=== PATIENT | female | born 1965 | race Caucasian/White ===

== ENCOUNTER 2016-11-06 03:53 | Inpatient (IN) | payer OTHER ==
--- NOTE | 2016-10-28 16:51 | History & Physical Pre-Op ---
General Information and [facility] MD Statement: I have seen and personally examined MARYJO GARCIA and documented this H&P. The patient is a 51 year old F who presented with a patient stated chief complaint of neck pain radiating predominantly to her right arm and hand with numbness and weakness. Source of Information: patient, old records Exam Limitations: no limitations History of Present Illness: Maryjo is a 51-year-old female who does have a 7 month history of progressively worsening neck pain radiating to her right tricep, wrist, and into her right hand with associated numbness in her right thumb and second and third digit intermittently. She also experiences occasional pain in her left trapezius muscle and rhomboid muscle. She does admit to weakness in her right upper extremity with associated dizziness and feeling "discombobulated". Maryjo states that her pain is a 10/10 in intensity in the morning upon awakening and in the evening after work. She denies any bowel or bladder changes. She has experienced some right-sided clavicle pain. She denies any known injury or precipitating event. She has tried narcotic analgesics, nonsteroidal anti- inflammatory medications, activity modification, ice, heat, and rest which has given her very minimal and temporary symptom relief. Maryjo's MRI confirms disc herniations at C4-5, C5-6, and right C6-7 with associated cord compression. Due to the fact that Maryjo has failed to respond to conservative measures and has had progressively worsening weakness in her right arm and hand, she wants nothing more to do with nonsurgical treatment and has been consented for an anterior/posterior cervical decompression and fusion C4-C7 with instrumentation and iliac crest bone grafting on 11/08/2016. Allergies/Medications Allergies: Coded Allergies: No Known Allergies (10/28/16) Home Med list Amlodipine Besylate (Norvasc) 5 MG TABLET 1 TAB PO DAILY BP (Reported) Modafinil (Provigil) 100 MG TABLET 1 TAB PO QAM "PERK UP" (Reported) Venlafaxine HCl (Effexor XR) 150 MG CAP.ER.24H 1 CAP PO DAILY BP (Reported) Compliance With Home Meds: GOOD Past History Medical History Neurological: dizziness EENT: NONE Cardiovascular: hypertension Respiratory: smoker 1PPD x 9 years Gastrointestinal: NONE Hepatic: NONE Renal: NONE Musculoskeletal: disk herniation, degen joint disease, osteoarthritis, spinal stenosis Psychiatric: depression, OCD Endocrine: NONE Blood Disorders: NONE Cancer(s): NONE WARNING COORDINATION METEOROLOGIST/Reproductive: NONE Surgical History Pertinent Surgical History: appendectomy, s/p T & A, s/p Abdominoplasty 15 years ago Past Family/Social History Family History Relations & Conditions if any FATHER (ASCVD). , Age 70. MOTHER (ASCVD). Age 80. Grandmother (Diabetes Mellitus). . DAUGHTER, , Age 24; Cause: Non Hodgkin's lymphoma. Psychosocial History Where Do You Live? Home Who Do You Live With? spouse Primary Language: Wolof Smoking Status: Current Everyday Smoker (1PPD x 9 years) ETOH Use: denies use Employment History Employment: Employed Profession/Employer: Community Nurse/Director of Daycare Review of Systems Review of Systems: Remarkable for the above complaints. Medication List Current Psychiatric Med(s): Norvasc 5mg daily Effexor 150mg daily Provigil 100mg daily Dihydrocodeine prn pain Aleve prn pain Stopped Atasol prn pain Exam & Diagnostic Data Physical Exam: Height: 5'5" Weight: 181 lbs. Physical Exam General Appearance Alert, Oriented X3, Cooperative, Mild Distress Skin No Rashes, No Breakdown, No Significant Lesion HEENT Atraumatic, PERRLA, EOMI, Mucous Membr. moist/pink Neck Supple, No JVD, No thryomegaly, +2 Carotid Pulse wo Bruit Lymphatic Cervical nl Cardiovascular Regular Rate, Normal S1, Normal S2, No Murmurs Lungs Clear to Auscultation Abdomen Normal Bowel Sounds, Soft, No Tenderness, No Hepatospenomegaly, No Masses Neurological Normal Gait, Normal Speech, Strength at 5/5 X4 Ext, Normal Tone, Reflexes 2+, decreased sensation in right 1st, 2nd and third digit Extremities No Clubbing, No Cyanosis, No Edema, Normal Pulses Vascular Normal Pulses Last 24 Hrs of Labs/Heriberto: Laboratory Tests 11/05/16 1425: Sodium Cancelled, Potassium Cancelled, Chloride Cancelled, Carbon Dioxide Cancelled, Anion Gap Cancelled, BUN Cancelled, Creatinine Cancelled, BUN/ Creatinine Ratio Cancelled, Glucose Cancelled, Calcium Cancelled, Total Bilirubin Cancelled, AST Cancelled, ALT Cancelled, Alkaline Phosphatase Cancelled, Total Protein Cancelled, Albumin Cancelled, Globulin Cancelled, Albumin/Globulin Ratio Cancelled, PT Cancelled, INR Cancelled, APTT Cancelled, CBC w Diff Cancelled, WBC Cancelled, RBC Cancelled, Hgb Cancelled, Hct Cancelled , MCV Cancelled, MCH Cancelled, RDW Cancelled, Plt Count Cancelled, MPV Cancelled, PUBS MCHC Cancelled, Urine Color Cancelled, Urine Clarity Cancelled, Urine pH Cancelled, Ur Specific [place] Cancelled, Urine Protein Cancelled, Urine Ketones Cancelled, Urine Nitrite Cancelled, Urine Bilirubin Cancelled, Urine Urobilinogen Cancelled, Ur Leukocyte Esterase Cancelled, Ur Microscopic Cancelled, Urine Hemoglobin Cancelled, Urine Glucose Cancelled Assessment/Plan Assessment/Plan: Assessment: 1. Severe spinal stenosis at C4-5, C5-6, and C6-7 with cord compression. 2. Smoking history 3. Hypertension 4. Depression 5. OCD Plan: Maryjo is scheduled for a staged anterior/posterior cervical decompression and fusion C4-C7 with instrumentation and iliac crest bone grafting on 11/08/2016. We discussed the surgery in great detail. We also discussed the pre-and postoperative course, follow-up care and instructions, and anticipated recovery. We also discussed the risks of surgery not to exclude , paralysis, infection, bleeding, continued pain, failure of the surgery, need for future surgery, DVT, vascular injury, CSF leak, hoarseness, and dysphagia, and given these risks, she still wishes to proceed. We discussed smoking cessation prior to and after surgery and the importance of that in her healing. She is scheduled to follow up with her primary care physician following blood work, urinalysis, EKG, and chest x-ray for medical clearance. Any changes in this patient's plan is based on this patient's outpatient clinical presentation. As Ranked By This Provider Problem List: 1. Hypertension 2. OCD (obsessive compulsive disorder) 3. Depression 4. Smoker Attending MD Review Statement Attending Statement Attending MD Statement: examined this patient, discuss w/resident/PA/DATA CENTER ENGINEER, agreed w/resident/PA/DATA CENTER ENGINEER, reviewed images
[~2016-11-06] VITALS: Ht 165.1 cm; Wt 81.6 kg
[~2016-11-06 03:53] MED LIST: EFFEXOR XR150 M1 PO; NORVASC5 M1 PO; PROVIGIL100 M1 PO
--- NOTE | 2016-11-06 17:00 | Operative Report ---
Operative/Inv Procedure Report Surgery Date: 11/06/16 Name of Procedure: Anterior cervical discectomy fusion with interdiscal cage and autograft anterior plate C4 5 C5 6 C6 7 harvesting morselized bone graft right anterior iliac crest Reconstruction of bone graft site with implant use of fluoroscopy Pre-Operative Diagnosis: Degenerative disc disease and spinal stenosis C4 to C7 osteoporosis Post-Operative Diagnosis: Same Estimated Blood Loss: 50ml to 100ml Surgeon/Gasoline Locomotive Crane Operator: RUTHIE BILLINGS,STACIA Oscar M.D. Anesthesia: general endotracheal tube Monitors: Neuro monitor IV Fluids: After adequate general anesthesia was achieved the patient was placed in the supine position with the head turned left and the shoulder states the side. The right side of the neck and left anterior iliac crest was sterile prepped and draped. Longitudinal incision was created medial to the neurovascular bundle lateral to the visceral structure blunt dissection was carried through this medial plane to the midline were bent needle was placed within the disc space. Fluoroscopy was used to identify surgical level. Sharp enterotomies were created at the 3 disc starting with C4 5 and C5 6 followed by C6 7 curettes and rongeurs were used to create the decompression which is carried posteriorly through the annulus and posterior longitudinal ligament. There was severe stenosis and encroachment of bone and disc 5 and C5 6 there was a right-sided herniation consistent with the patient's preoperative symptoms C6 7. Following the decompression the endplates were debrided with the high-speed bur. An incision was made of the left anterior iliac crest. Subperiosteal dissection was carried medial and lateral to the crest. The oscillating saw and curettes were used to collect cortical cancellus cancellus morcellized bone. Wound was irrigated packed with bone graft implant and closed in layers with absorbable suture with sharmila in the skin. The trials were used to measure the disc spaces and implants were selected and packed with bone graft. The 3 interdiscal cages were tamped into position under fluoroscopy at C4 5 C5 6 and C6 7. An anterior plate was then applied with reasonable purchase in all 8 screws. 2 process was identified at time of harvesting the bone graft. The construct was checked in AP and lateral plane and found to be appropriate. Hemostasis been achieved. Wound was copiously irrigated. Closure of the platysma was performed with a running 0 absorbable suture. Skin was closed with nylon. Sterile dressings were applied the patient was turned for posterior surgery. Drains: C known fluids. Operative/Procedure Note Note: C note.
--- NOTE | 2016-11-06 17:06 | Operative Report ---
Operative/Inv Procedure Report Surgery Date: 11/06/16 Name of Procedure: Posterior decompression with laminectomies and keyhole foraminotomies C4 5 C5 6 C6 7. Placement of Marks tongs removal of Marks tongs. Lateral fusion C4 to C7 bilaterally. Instrumented fusion C4 to C7 with 18-gauge wire. Fluoroscopy. Pre-Operative Diagnosis: Osteoporosis spinal stenosis C4 to C7 status post anterior cervical surgery Post-Operative Diagnosis: Same Estimated Blood Loss: scant Surgeon/Egg Worker: RUTHIE BILLINGS,STACIA Oscar Anesthesia: general endotracheal tube Monitors: Neuro Operative/Procedure Note Note: Following anterior procedure patient was log rolled on to the stretcher and Marks tongs were applied. Patient isn't log rolled in the prone position on the operating table and Marks tongs were secured. The back of the neck was sterilely prepped and draped and incision made midline and carried down bilaterally over the dorsal elements. A metallic object was placed and fluoroscopy was used to identify surgical level. The high-speed bur and curettes were used to create keyhole foraminotomies and laminectomies at C4 5 C5 6 and C6 7 bilaterally. There was severe stenosis at all 3 levels. Corticotomies were created and the spinous processes of C4 and C7. An 18-gauge wire was passed tightened and trimmed and bent to the midline. The pencil point bur was used to decorticate the facets at all 3 levels bilaterally. Morselized bone graft collected anteriorly was packed within the facet joints at all 3 levels bilaterally. The wound was copiously irrigated bone graft remained in place. Fluoroscopy was used and showed appropriate position of the hardware. The fascia was closed with absorbable sutures as was the subcutaneous tissue and skin was closed with sharmila sterile dressings were applied the Marks tongs were removed and the patient was taken the recovery room.
--- NOTE | 2016-11-06 19:00 | NUR ---
ADMISSION NOTE: PT ARRIVED TO FLOOR IN BED WITH DISTRIBUTION SLEEPY, AROUSABLE, 3L NC SATTING 93%, DSG TO ANTERIOR AND POSTERIOR CERVICAL, DSG TO L GROIN, IV SITES INTACT, FLUIDS RUNNING PER MD ORDER, PAIN 10/10 TO NECK, STRONG HAND GRASP, MOVED TOES, +CMS, VSS, WELCOME FOLDER GIVEN, ORIENTED TO ROOM, RESTING IN BED IN LOW LOCKED POSITION.
[2016-11-06 19:13] VITALS: BP 142/86
--- NOTE | 2016-11-06 19:40 | Patient Discharge Instructions ---
Acute Coronary Syndrome Inclusion Criteria At DC or during hospital stay patient has or had the following: ACS DIAGNOSIS No Discharge Core Measures Meds if any: Prescribed or Continued at Discharge Meds if any: NOT Prescribed or Continued at Discharge Congestive Heart Failure Inclusion Criteria At DC or during hospital stay patient has or had the following: CHF DIAGNOSIS No Discharge Core Measures Meds if any: Prescribed or Continued at Discharge Meds if any: NOT Prescribed or Continued at Discharge Cerebrovascular accident Inclusion Criteria At DC or during hospital stay patient has or had the following: CVA/TIA Diagnosis No Discharge Core Measures Meds if any: Prescribed or Continued at Discharge Meds if any: NOT Prescribed or Continued at Discharge Venous thromboembolism Inclusion Criteria VTE Diagnosis No VTE Type NONE VTE Confirmed by (Test) NONE Discharge Core Measures - Per Current guidelines, there needs to be overlap - treatment for the first 5 days of Warfarin therapy. - If discharged on Warfarin prior to 5 days of - overlap therapy, the patient will need to be - assessed for post discharge needs including - *Post discharge parental anticoagulation - *Warfarin and/or parental anticoagulation education - *Follow up date to check INR post discharge At least 5 days overlap therapy as Inpatient No Meds if any: Prescribed or Continued at Discharge Note: Overlap Therapy is Warfarin and Anticoagulant Meds if any: NOT Prescribed or Continued at Discharge
[2016-11-06] MEDS ORDERED: PERCOCET 5-3251 EACH PO (19:44)
--- NOTE | 2016-11-06 19:58 | RADIOLOGY REPORT ---
EXAMINATION: XR CERVICAL SPINE CLINICAL INFORMATION: Anterior cervical discectomy. Fusion in the operating room. COMPARISON: None TECHNIQUE: Imaging assistance provided in the operating room during a cervical spine procedure 5 images submitted. Fluoroscopy time: 0.2 minutes Cumulative dose: 0.894 mGy FINDINGS: Lateral images obtained in the operating room with the portable image intensifier are limited. The patient is intubated. Instruments are present. Anterior plate and screw fixation. Disc prostheses. There are at least C4/C5 is partially visualized. The more inferior anatomy is obscured. Metallic densities project in the soft tissues and may overlie the patient. IMPRESSION: Limited study. Imaging assistance provided in the operating room during discectomy, interbody fusion and instrumentation
--- NOTE | 2016-11-06 20:20 | NUR ---
PT S/P ACD WITH FUSION. DROWSY BUT AROUSABLE, PAIN 06/27, MORPHINE GIVEN WTIH GOOD EFFECT. IVF INFUSING, VSS, NEUROS INTACT. ALPS ARE ON. WILL PLACE TEDS. CALL HOLLOWAY WITHIN REACH. ORIENTED TO 2NB, FAMILY AT BEDSIDE
[2016-11-06 21:55] VITALS: BP 154/92
[2016-11-07 06:44] VITALS: BP 148/76
--- NOTE | 2016-11-07 09:11 | PN- Neurosurgical ---
Subjective Subjective: POD 1 Pt is OOB in chair and is extremely drowsy. She stated that she had a rough night and didn't get much sleep. Also she is extremely tired after ambulating in the room from the bathroom and felt somewhat lightheaded upon ambulating. Her right hip is very sore from surgery and she has recently taken pain meds. She just wants to rest this morning. Objective Vital Signs and I&Os Vital Signs Date Time Temp Pulse Resp B/P Pulse O2 O2 Flow FiO2 Ox Delivery Rate 11/07 0644 98.3 94 20 148/76 97 Nasal 3.0L Cannula 11/07 94 Nasal 3.0L Cannula 11/06 2154 97.6 83 19 154/92 95 Nasal 3.0L Cannula 11/06 2049 Nasal 3.0L Cannula 11/06 2013 93 Nasal 3.0L Cannula 11/06 1912 97.6 86 18 142/86 93 Nasal 3.0L Cannula Intake & Output 11/07 1600 11/07 0800 11/07 0000 11/06 1600 11/06 0800 11/06 0000 Intake Total 1000 600 Output Total 1200 300 Balance -200 300 Intake, IV 800 500 Intake, Oral 200 100 Output, Urine 1200 300 Patient 180 lb Weight Physical Exam: afebrile, vss General: tired but awakens, oriented times three Chest: clear anteriorly bilaterally, RRR Abd; Soft, good bw Ext: warm, no edema, positive sensate, good 5/5 PRATEEK all 4 ext Wound: dressed, dry, soft neck collar in place Current Medications: Current Medications Sig/Christine Start time Last Medication Dose Route Stop Time Status Admin Acetaminophen 650 MG Q4P PRN 11/06 1929 AC PO Acetaminophen 1,000 MG .STK-MED ONE 11/06 1103 DC IV 11/06 1104 Amlodipine Besylate 5 MG DAILY 11/07 1000 AC PO Bisacodyl 10 MG DAILY NEEDED PRN 11/06 1929 AC NM Calcium 600 MG BID 11/06 2199 AC 11/06 PO 2215 Cefazolin Sodium 2,000 MG ONCE 11/06 0000 DC IV 11/06 2359 Cholecalciferol 1,000 IU DAILY 11/07 1000 AC PO Diazepam 5 MG Q8P PRN 11/06 1929 AC 11/06 PO 2215 Docusate Sodium 100 MG BID 11/06 2199 AC 11/06 PO 2216 Fentanyl Citrate 500 MCG .STK-MED ONE 11/06 1102 DC IM 11/06 1103 Hydromorphone HCl 2 MG .STK-MED ONE 11/06 1746 DC IM 11/06 1747 Hydromorphone HCl 2 MG .STK-MED ONE 11/06 1102 DC IM 11/06 1103 Lactated Ringer's 1,000 ML Q10H 11/06 1800 AC 11/07 IV 0349 Lorazepam 0.5 MG Q4P PRN 11/06 194 AC PO Magnesium Hydroxide 30 ML Q8P PRN 11/06 194 AC PO Meperidine HCl 50 MG .STK-MED ONE 11/06 1758 DC IM 11/06 1759 Midazolam HCl 2 MG .STK-MED ONE 11/06 1102 DC IM 11/06 1103 Modafinil 100 MG QAM 11/07 1000 AC PO Morphine Sulfate 2 MG Q4P PRN 11/06 1800 AC 11/07 IV 0724 Multivitamins 1 TAB DAILY 11/07 1000 AC PO Ondansetron HCl 4 MG Q6P PRN 11/06 1930 AC IV Oxycodone/ 1 TAB Q4P PRN 11/06 1800 AC Acetaminophen PO Oxycodone/ 2 TAB Q4P PRN 11/06 1800 AC Acetaminophen PO Remifentanil 6 MG .STK-MED ONE 11/06 1103 DC IV 11/06 1104 Trimethobenzamide HCl 200 MG Q6P PRN 11/06 1930 AC IM Venlafaxine HCl 150 MG 0800 11/07 0800 AC PO Assessment/Plan Assessment/Plan 51 yo female s/p Posterior decompression with laminectomies C-7. Lateral fusion C4 to C7 bilaterally with R ICBG PT - WBAT Pain management dc planning Core Measures/Miscellaneous Venous Thromboembolism VTE Risk Factors: Age > 40, Surgery VTE Contraindications: Active Bleeding No Pharm VTE Prophylaxis D/T: Surgical Contraindication VTE Diagnosis: No Beta Lico Is Beta Lico a Home Med? No Antibiotics Is Patient on Antibiotics? No
[2016-11-07 14:39] VITALS: BP 158/70
[2016-11-07] MEDS ORDERED: VALIUM10 M1 PO (15:55)
--- NOTE | 2016-11-07 16:05 | PN- Orthopedic ---
Subjective Subjective: Patient c/o expected postop incisional pain. No preop right arm pain/ paresthesias. No dysphagia/hoarseness. Neto. po. Tolerating Percocet. No CP, N/V, fever/chills. Patient ambulated with PT. Voiding without difficulty. - BM. Review of Systems: Remarkable for the above complaints. Objective Vital Signs and I&Os Vital Signs Date Time Temp Pulse Resp B/P Pulse O2 O2 Flow FiO2 Ox Delivery Rate 11/07 1439 97.8 95 20 158/70 93 Nasal 2.0L Cannula 11/07 0918 94 148/76 11/07 0800 92 Nasal 2.0L Cannula 11/07 0644 98.3 94 20 148/76 97 Nasal 3.0L Cannula 11/07 0000 94 Nasal 3.0L Cannula 11/06 2155 97.6 83 19 154/92 95 Nasal 3.0L Cannula 11/06 2049 Nasal 3.0L Cannula 11/06 2013 93 Nasal 3.0L Cannula 11/06 1913 97.6 86 18 142/86 93 Nasal 3.0L Cannula Intake & Output 11/07 1600 11/07 0800 11/07 0000 11/06 1600 11/06 0800 11/06 0000 Intake Total 1000 600 Output Total 400 1200 300 Balance -400 -200 300 Intake, IV 800 500 Intake, Oral 200 100 Output, Urine 400 1200 300 Patient 180 lb Weight Physical Exam General Appearance: well developed/nourished, alert, awake, moderate distress Head: atraumatic, normal appearance Neck: limited range of motion, Incision C/D/I. Dressings changed. Respiratory: normal breath sounds Cardiovascular: regular rate/rhythm Abdomen: normal bowel sounds, soft, non-tender Extremities: normal inspection, normal capillary refill, no edema, Improved strength in right arm., Intact sensation in omar. UE. Neurologic/Psychiatric: awake, alert, oriented x 3 Reflexes: 1+: bicep (R), tricep (L). 2+: bicep (L), tricep (L). Skin: intact, normal color, warm/dry Assessment/Plan Assessment/Plan Assessment: s/p ACDF/PCDF C4-C7 with Instr/ICBG Plan: Wean O2/IVF. Continue with po Percocet. Ambulate with PT Continue with collar/ice/heat. Do's/Dont's explained as well as Discharge instructions Will F/U in am. Possible D/C in am if cleared by PT and off O2. D/C TEDS Problem List: 1. Hypertension 2. OCD (obsessive compulsive disorder) 3. Depression 4. Smoker Core Measures/Miscellaneous Venous Thromboembolism VTE Risk Factors: Age > 40, Surgery VTE Contraindications: Active Bleeding No Pharm VTE Prophylaxis D/T: Surgical Contraindication VTE Diagnosis: No Beta Lico Is Beta Lico a Home Med? No Antibiotics Is Patient on Antibiotics? No Attending MD Review Statement Attending Statement Attending MD Statement: examined this patient, discuss w/resident/PA/ENVIRONMENTAL ENGINEER SCIENTIST, agreed w/resident/PA/ENVIRONMENTAL ENGINEER SCIENTIST
[2016-11-07 22:25] VITALS: BP 146/80
[2016-11-08 06:18] VITALS: BP 135/82
[2016-11-08 10:30] VITALS: BP 136/72
[2016-11-08] MEDS ORDERED: TYLENOL325 M1 PO (10:40)
[2016-11-08] MEDS ORDERED: BISAC-EVAC10 M1 PR (10:40)
[2016-11-08] MEDS ORDERED: VITAMIN D31000 UNI2 PO (10:41)
[2016-11-08] MEDS ORDERED: DOCUSATE SODIU100 M3 PO (10:41)
[2016-11-08] MEDS ORDERED: CALCIUM CARBON500 M2 PO (10:41)
[2016-11-08] MEDS ORDERED: MILK OF MA400 MG/52 PO (10:42)
[2016-11-08] MEDS ORDERED: ONE DAILY MULT1 EAC2 PO (10:42)
--- NOTE | 2016-11-20 20:08 | Surg Short-stay <48hrs Dis Sum ---
Visit Information Visit Dates Admission Date: 11/06/16 Discharge Date: 11/08/16 Surgical Short Stay DC Summary Admission Diagnosis: C4-C7 discs herniations and C7 cord compression with right upper extremity radiculopathy Final Diagnosis: Same as above Procedure(s): C4-C7 instrumented anterior/posterior fusion with icbg Summary/Significant Findings: C4-C7 disc herniation Condition at Discharge: stable Discharge Disposition: home or self care Discharge instructions provided to patient/family: Yes Post discharge follow-up plan: may ambulate as tolerated in soft collar dry sterile drsg to neck keep wounds clean and dry pain meds po as needed
== END 2016-11-08 14:44 | DRG 473 ==
LOC: ENRESERVDT → ENRESERVTM → SDA 03:53 → ENPENDDIS 03:53 → 2NB 18:51
PROVIDERS: ADMIT Orthopaedic Surgery Orthopaedic Surgery of the Spine
PROC: 0RG20A0 Fusion of 2 or more Cervical Vertebral Joints with Interbody Fusion Device, Anterior Approach, Anterior Column, Open Approach (ICD-10-PCS; principal; 2016-11-06)
PROC: 0QB20ZZ Excision of Right Pelvic Bone, Open Approach (ICD-10-PCS; 2016-11-06)
PROC: 0RB30ZZ Excision of Cervical Vertebral Disc, Open Approach (ICD-10-PCS; 2016-11-06)
DX: M48.02 Spinal stenosis, cervical region (principal); I10 Essential (primary) hypertension; M47.892 Other spondylosis, cervical region; F17.200 Nicotine dependence, unspecified, uncomplicated; F32.9 Major depressive disorder, single episode, unspecified; F42.9 Obsessive-compulsive disorder, unspecified
CPT/HCPCS: 36415; 72040; 87086; 97116-GO; 97161-GP; 97530-GO; J0131; J0690; J2405; J3250; J3360; J7120